=== PATIENT | male | born 1960 ===

== ENCOUNTER → 2021-11-30 | Day surgery (SDC) | payer OTHER ==
[~2021-11-30] VITALS: Ht 182.9 cm; Wt 86.2 kg
[~2021-11-30] MED LIST: NORVASC5 MG PO; PRINIVIL20 MG PO
[2021-11-30 09:40] LABS: HCT 42.3 % (42.0-52.0); HGB 14.4 g/dl (13.2-18.0); MCH 31.1 pg (25.0-31.0); MCV 91.4 fL (78.0-100.0); MPV 9.1 fL (6.0-9.5); RBC 4.63 M/uL (4.70-6.00); RDW 12.5 % (11.5-14.0); WBC 6.8 K/uL (4.0-10.5)
[2021-11-30 10:08] LABS: ALBUMIN 4.1 g/dL (3.4-5.0); BILIRUBIN - TOTAL 0.6 mg/dL (0.2-1.0); BUN/CREAT RATIO (CALC) 18.2 RATIO; CREATININE 0.99 mg/dL (0.67-1.17); GLOBULIN (CALCULATION) 3.1 g/dL; POTASSIUM 4.1 mmol/L (3.5-5.1); TOTAL PROTEIN 7.2 g/dL (6.4-8.2)
== END | disposition home or self-care (01) ==
LOC: FAS 09:01
PROVIDERS: Surgery
DX: Z12.11 Encounter for screening for malignant neoplasm of colon (principal); I10 Essential (primary) hypertension
CPT/HCPCS: 36415; 80053; J2250; J2704; J7120